=== PATIENT | female | born 1995 | race Caucasian/White ===

== ENCOUNTER → 2019-12-10 14:20 | Outpatient (BNVA) | payer MEDICAID, SELFPAY | PROVIDERS: Visit Provider Nurse Practitioner Women's Health | DX: Z34.90 Encounter for supervision of normal pregnancy, unspecified, unspecified trimester (principal) | CPT/HCPCS: 81000 ==

== ENCOUNTER → 2019-12-18 14:16 | Outpatient (BNVA) | payer MEDICAID, SELFPAY | PROVIDERS: Visit Provider Obstetrics & Gynecology | DX: Z34.90 Encounter for supervision of normal pregnancy, unspecified, unspecified trimester (principal) | CPT/HCPCS: 80053; 80307; 81000; 85027; 86592; 86762; 86803; 86850; 86900; 87340 ==

== ENCOUNTER → 2020-01-06 12:02 | Outpatient (BNVA) | payer MEDICAID, SELFPAY | PROVIDERS: Visit Provider Obstetrics & Gynecology | DX: Z34.90 Encounter for supervision of normal pregnancy, unspecified, unspecified trimester (principal) | CPT/HCPCS: 81000 ==

== ENCOUNTER → 2020-01-28 11:13 | Outpatient (BNVA) | payer MEDICAID, SELFPAY | PROVIDERS: Visit Provider Nurse Practitioner Women's Health | DX: Z34.90 Encounter for supervision of normal pregnancy, unspecified, unspecified trimester (principal) | CPT/HCPCS: 81000 ==

== ENCOUNTER → 2020-03-15 07:58 | Outpatient (BNVA) | payer OTHER, MEDICAID, SELFPAY | PROVIDERS: Visit Provider Obstetrics & Gynecology | DX: Z34.90 Encounter for supervision of normal pregnancy, unspecified, unspecified trimester (principal) | CPT/HCPCS: 81000 ==

== ENCOUNTER → 2020-04-28 10:52 | Outpatient (BNVA) | payer OTHER, MEDICAID, SELFPAY | PROVIDERS: Visit Provider Obstetrics & Gynecology | DX: Z34.90 Encounter for supervision of normal pregnancy, unspecified, unspecified trimester (principal) | CPT/HCPCS: 82950; 84315; 85025 ==

== ENCOUNTER → 2020-06-23 09:38 | Outpatient (BNVA) | payer OTHER, MEDICAID, SELFPAY | PROVIDERS: Visit Provider Obstetrics & Gynecology | DX: Z34.80 Encounter for supervision of other normal pregnancy, unspecified trimester (principal) | CPT/HCPCS: 84315; 87081 ==

== ENCOUNTER 2020-07-13 11:00 | Inpatient (IN) | payer OTHER, MEDICAID, SELFPAY ==
[2020-07-13] VITALS (56 sets, daily range): BP systolic 88–151; BP diastolic 48–86; PULSE 63–166; RESP 18; TEMP 36–36.7; O2SAT 92–100; BMI 29.4
[2020-07-13] MEDS: dextrose 5%-lactated ringers 1,000 ML 999 ML IV ×2 (10:29→12:04)
[2020-07-13] MEDS: ampicillin 2,000 MG in sodium chloride 0.9% (plus) 50 ML 100 MG IV (10:29)
[2020-07-13 11:39] LABS: Basophils % 0.3 %; Eosinophils % 0.1 %; Hematocrit 36.7 % (37.0-47.0); Hemoglobin 11.7 g/dL (11.5-15.3); Lymphocytes # 1.7 10^3/uL (0.8-4.8); Lymphocytes % 14.3 %; Mean Corpuscular HGB Conc 31.9 g/dL (30.0-36.0); Mean Corpuscular Hemoglobin 27.1 pg (28.0-34.0); Mean Platelet Volume 10.9 fL (7.4-10.4); Monocytes # 0.7 10^3/uL (0.2-0.9); Monocytes % 5.4 %; Neutrophils # 9.39 10^3/uL (1.8-7.7); Neutrophils % 78.7 %; Nucleated Red Blood Cells % 0 %; Platelet Count 167 10^3/cmm (130-400); Red Blood Count 4.32 10^6/uL (4.1-5.3); Red Cell Distribution Width 13.4 % (12.1-15.1); White Blood Count 11.9 10^3/uL (4.0-10.0)
--- NOTE | 2020-07-13 12:36 | P.HP_ITS ---
Providers/Chief Complaint Admitting Physician: Sapna Rich MD Chief Complaint: Contractions History of Present Illness Shaye Kiran is a 24 year old female at 39 0/7 weeks gestation who presents for active labor. Her is complicated by GBS positive and request for sterilization. She will have her covid test today. She presented to labor and delivery. She is luli every 2-3 minutes and she is making cervical change. Review of Systems General: Reports: 10 or more systems reviewed and unremarkable except in HPI and below Medications/Allergies Home Medications Medication Instructions Recorded Confirmed Last Taken Type prenat.vits,wojciech,isp-ieti-rlzvk 1 tab PO DAILY 12/10/19 07/07/20 Unknown History Allergies Allergy/AdvReac Type Severity Reaction Status Date / Time No Known Allergies Allergy Verified 07/07/20 10: PFSH Acute PFSH: Medical History No pertinent past medical history Denies diabetes, asthma, hypertension, seizures, DVT/PE PMD: None Surgical History Hx of wisdom tooth extraction Family History Grandmother Diabetes Paternal Heart disease Paternal Hypercholesteremia Paternal Thyroid disease Maternal Denies family history of Colon cancer Ovarian cancer Breast cancer Bleeding disorder Hypertension Uterine cancer Stroke Female Reproductive History: : 3 Vitals/I&O/Wt Last Vital Signs Temp 97.2 F L 07/13/20 11:52 Pulse 77 07/13/20 12:33 Resp 18 07/13/20 08:44 BP 130/70 07/13/20 12:33 07/12/20 07/13/20 07/13/20 22:59 06:59 14:59 Intake Total 1000 / 1000 Balance 1000 / 1000 Weight last 48 hrs Weight 177 lb Physical Exam Const: COMMON NORMALS: no acute distress, average body habitus, patient oriented x3, no limitations, healthy appearing and alert GENERAL APPEARANCE: cooperative, comfortable, well kempt and well developed ORIENTATION/CONSCIOUSNESS: Yes awake, Yes oriented to person, Yes oriented to place and Yes oriented to time Neck/C-Spine: COMMON NORMALS: full ROM and supple Resp: COMMON NORMALS: normal respiratory effort EFFORT & INSPECTION: Yes able to speak in complete sentences GI: COMMON NORMALS: Soft to palpation and non-tender : MANUAL OB EXAM: dilated 3 cm, effaced 75% and station -1 Extremity: COMMON NORMALS: no clubbing, cyanosis or edema Psych: COMMON NORMALS: mental status grossly normal, Normal thought process present, cooperative, normal affect and speech normal APPEARANCE: Yes grossly normal and Yes well kempt ATTITUDE: Yes calm and Yes engaged ACTIVITY/MOTOR BEHAVIOR: Yes appropriate eye contact Data : 07/13/20 11:07 A&P Assessment and plan (1) GBS (group B Streptococcus carrier), +RV culture, currently : plan GBS prophylaxis Status: Acute (2) Request for sterilization: plan post tubal ligation covid testing today Status: Acute (3) Supervision of other normal : admit for expectant management anticipate Status: Acute Attestations Medical Necessity Statement*: She is admitted for active labor. Coding Level of Care Code Acute Financial Reporting Specialist for [facility] Fwd Diagnoses GBS (group B Streptococcus carrier), +RV culture, currently O99.820 Request for sterilization Z30.2 Supervision of other normal Z34.80
[2020-07-13] MEDS: lactated ringers 1,000 ML 999 ML IV (12:50)
[2020-07-13] MEDS: ampicillin 1,000 MG in sodium chloride 0.9% (plus) 50 ML 100 MG IV ×2 (13:52→17:54)
[2020-07-13] MEDS: dextrose 5%-lactated ringers 1,000 ML 125 ML IV (13:56)
--- NOTE | 2020-07-13 14:14 | P.ANES_ITS ---
Anesthesia Procedures Procedure/Date: 07/13/20 Epidural: Time Out Performed: Yes Consents Signed: Procedure Consent Consent: from patient, risks and benefits reviewed and patient agrees to proceed Lumbar Level: L3-L4 Epidural position: sitting Epidural procedure: sterile prep of area, 1% lidocaine to numb the area, 18 g needle, neg for parest hesia, test dose given, 1.5% xylocaine 1:200k epi, placed PCEA, no systemic response, sterile dressing applied, L.U.D. no apparent complications and 0.2% Ropiavacaine @ mls/hr (13) Additional Comments: PIO at 4cm cath at 9cm. Bolused 5mls 2% PF lido.
--- NOTE | 2020-07-13 14:14 | P.ANESASSM_ITS ---
Pre-Anesthetic Assessment Pre-Anesthetic Assessment: Height/Weight: Height 1.65 m Weight 80.286 kg Temp Pulse Resp BP Pulse Ox 97.2 F L 95 18 119/60 99 07/13/20 11:52 07/13/20 14:10 07/13/20 08:44 07/13/20 14:10 07/13/20 14:07 Was Beta Juancarlos taken within 24 hours: N/A Was Clonidine taken within 24 hours: N/A Social: Social History: No alcohol and No tobacco Exam: Pre-Anes Outpt Exam: alert, oriented x 3, clear to auscultation bilaterally and regular rate & rhythm Airway: Submandibular: WNL Cervical ROM: WNL MP: 2 Dentition: Full History/ROS: No significant history except as noted Anesthetic Plan: ASA status: 2 Anesthesia: Regional (specify below) (Labor epidural) Risk of > 500 ml blood loss (7ml/kg in children): No Meds/Allergies Current Medications: Current Medications Generic Name Dose Route Start Last Admin Trade Name Freq PRN Reason Stop Dose Admin Ampicillin Sodium 1,000 mg/ 50 mls @ 100 mls/ hr 07/13/20 14:00 07/13/20 13:52 Sodium Chloride IV 100 mls/hr Q4H AHMET Administration Protocol Dextrose/Lactated Ringer's 1,000 mls @ 125 m ls/hr 07/13/20 11:00 07/13/20 13:56 Dextrose 5%-Lact ated Ringers IV 125 mls/hr .Q8H AHMET Administration Ropivacaine 200 mg in 100 mls @ 13 mls/hr 07/13/20 12:45 07/13/20 13:58 Naropin Premix EPIDURAL 13 mls/hr .Q7H42M AHMET Administration Lactated Ringer's 1,000 mls @ 999 m ls/hr 07/13/20 12:37 07/13/20 13:59 Lactated Ringers IV Infused .Q1H1M PRN Infusion See label comment s PFSH Anesthesia PFSH: Medical History No pertinent past medical history Denies diabetes, asthma, hypertension, seizures, DVT/PE PMD: None Surgical History Hx of wisdom tooth extraction Family History Grandmother Diabetes Paternal Heart disease Paternal Hypercholesteremia Paternal Thyroid disease Maternal Denies family history of Colon cancer Ovarian cancer Breast cancer Bleeding disorder Hypertension Uterine cancer Stroke Female Reproductive History: : 3 Data Anesthesia CBC & Chem 7: 07/13/20 11:07 Other Labs: Laboratory Results - last 48 hr 07/13/20 11:07 WBC 11.9 H RBC 4.32 Hgb 11.7 Hct 36.7 L MCV 85.0 MCH 27.1 L MCHC 31.9 RDW 13.4 Plt Count 167 MPV 10.9 H Neut % (Auto) 78.7 Lymph % (Auto) 14.3 [place] % (Auto) 5.4 Eos % (Auto) 0.1 Baso % (Auto) 0.3 Neut # (Auto) 9.39 H Lymph # (Auto) 1.7 [place] # (Auto) 0.7 Eos # (Auto) 0.0 Baso # (Auto) 0.0 Nucleated RBC % (auto) 0 Nucleated RBCs # 0.0 Cardiac Studies: No Data to Display
[2020-07-13] MEDS: oxytocin 30 UNIT/500 ML BAG 600 UNIT IV (21:45)
--- NOTE | 2020-07-13 22:18 | P.PCNOB_ITS ---
Delivery Note: Date of delivery: July 13, 2020 Pre-delivery diagnoses: IUP at 39 0/7 weeks Post-delivery diagnoses: same, delivered Procedure: Op report anesthesia: Epidural Delivering Physician: jefry Estimated blood loss (mL): 50 Findings: term male in the [place] presentation Pre-Delivery Course: The patient was admitted in active labor. She became uncomfortable at 4 cm and received an epidural. Delivery: The patient had complete cervical dilation and began to push. The head delivered in the [ ] position over an intact perineum under epidural anesthesia. The nose and mouth were bulb suctioned. The shoulders and body delivered atraumatically. The baby was placed onto the mother's abdomen. The cord was clamped and cut. Cord blood was obtained. The placenta delivered spontaneously. It was inspected and found to be intact. Inspection of the perineum revealed no laceration. Estimated blood loss 50 mL. Apgars on baby were 9 at 1 minute and 9 at 5 minutes. Weight of baby is 8 pounds 7 ounces. Mother and baby were stable post delivery. Post-Delivery Status: stable mother and A&P Assessment and plan (1) GBS (group B Streptococcus carrier), +RV culture, currently : Status: Acute (2) Request for sterilization: Status: Acute (3) Supervision of other normal : Status: Acute Coding Level of Care Code Acute Donor Specialist for [facility] Fwd Diagnoses GBS (group B Streptococcus carrier), +RV culture, currently O99.820 Request for sterilization Z30.2 Supervision of other normal Z34.80
[2020-07-14] VITALS (10 sets, daily range): BP systolic 105–120; BP diastolic 59–80; PULSE 67–107; RESP 14–18; TEMP 36.4–37.5; O2SAT 95–99
[2020-07-14] MEDS: acetaminophen 325 mg Tablet 650 MG PO (04:44)
--- NOTE | 2020-07-14 07:27 | P.ANESASSM_ITS ---
Pre-Anesthetic Assessment Pre-Anesthetic Assessment: Height/Weight: Height 1.65 m Weight 80.286 kg Temp Pulse Resp BP Pulse Ox 98.1 F 82 18 115/70 95 07/14/20 07:11 07/14/20 07:11 07/14/20 07:11 07/14/20 07:11 07/14/20 07:11 Preop Diagnosis: desires sterilization Proposed Procedure: Operation Date: 07/14/20 08:25 Proposed Procedures p Bilateral Tubal Ligation(Bilateral) - Sapna Rich MD Was Beta Juancarlos taken within 24 hours: N/A Was Clonidine taken within 24 hours: N/A Social: Social History: No alcohol and No tobacco Exam: Pre-Anes Outpt Exam: alert, oriented x 3, clear to auscultation bilat erally and regular rate & rhythm Airway: Submandibular: WNL Cervical ROM: WNL MP: 2 Dentition: Full History/ROS: No significant history except as noted Anesthetic Plan: ASA status: 2 Anesthesia: General Other: One day Risk of > 500 ml blood loss (7ml/kg in children): No Meds/Allergies Current Medications: Current Medications Generic Name Dose Route Start Last Admin Trade Name Freq PRN Reason Stop Dose Admin Acetaminophen 650 mg 07/13/20 10:57 07/14/20 04:44 Acetaminophen 32 5 Mg Tablet PO 650 mg Q6H PRN Administration Mild pain or temp > 100.4 Oxytocin 30 unit in 500 ml s @ 600 mls/hr 07/13/20 10:57 07/13/20 22:55 Pitocin IV Infused .Q50M PRN Titration After delivery of Protocol PFSH Anesthesia PFSH: Medical History No pertinent past medical history Denies diabetes, asthma, hypertension, seizures, DVT/PE PMD: None Surgical History Hx of wisdom tooth extraction Family History Grandmother Diabetes Paternal Heart disease Paternal Hypercholesteremia Paternal Thyroid disease Maternal Denies family history of Colon cancer Ovarian cancer Breast cancer Bleeding disorder Hypertension Uterine cancer Stroke Female Reproductive History: : 3 Data Anesthesia CBC & Chem 7: 07/13/20 11:07 Other Labs: Laboratory Results - last 48 hr 07/13/20 11:07 WBC 11.9 H RBC 4.32 Hgb 11.7 Hct 36.7 L MCV 85.0 MCH 27.1 L MCHC 31.9 RDW 13.4 Plt Count 167 MPV 10.9 H Neut % (Auto) 78.7 Lymph % (Auto) 14.3 [place] % (Auto) 5.4 Eos % (Auto) 0.1 Baso % (Auto) 0.3 Neut # (Auto) 9.39 H Lymph # (Auto) 1.7 [place] # (Auto) 0.7 Eos # (Auto) 0.0 Baso # (Auto) 0.0 Nucleated RBC % (auto) 0 Nucleated RBCs # 0.0 Cardiac Studies: No Data to Display
--- NOTE | 2020-07-14 09:03 | PM.PN ---
Subjective Subjective: Interval history: The patient is doing well today. She was unable to have her tubal ligation done this AM due to no covid results back yet. She is tolerating a regular diet, ambulating and pain is well controlled. Plan is for discharge tomorrow morning and interval tubal ligation. Medications: Reviewed: Yes Vitals/I&O/Wt Last Vital Signs Temp 98.3 F 07/14/20 08:40 Pulse 74 07/14/20 08:40 Resp 15 07/14/20 08:40 BP 120/80 07/14/20 08:40 Pulse Ox 99 07/14/20 08:40 07/13/20 07/14/20 07/14/20 22:59 06:59 14:59 Intake Total 1663 / 4713 Output Total 1050 / 1050 Balance 1663 / 4713 -1050 / 3663 Weight last 48 hrs Weight 177 lb Physical Exam Const: COMMON NORMALS: no acute distress, average body habitus, patient oriented x3, no limitations, healthy appearing and alert GENERAL APPEARANCE: cooperative, comfortable, well kempt and well developed ORIENTATION/CONSCIOUSNESS: Yes awake, Yes oriented to person, Yes oriented to place and Yes oriented to time Neck/C-Spine: COMMON NORMALS: full ROM and supple Resp: COMMON NORMALS: normal respiratory effort EFFORT & INSPECTION: Yes able to speak in complete sentences GI: COMMON NORMALS: Soft to palpation and non-tender PALPATION: Yes Soft to palpation Extremity: COMMON NORMALS: no clubbing, cyanosis or edema Neuro: COMMON NORMALS: patient oriented x3 SENSORIUM/ORIENTATION: Yes alert, Yes oriented to person, Yes oriented to place and Yes oriented to time Psych: COMMON NORMALS: mental status grossly normal, Normal thought process present, cooperative, normal affect and speech normal APPEARANCE: Yes grossly normal and Yes well kempt ATTITUDE: Yes calm and Yes engaged ACTIVITY/MOTOR BEHAVIOR: Yes appropriate eye contact SPEECH: Yes normal speech THOUGHT PROCESS: Normal thought process present Urinary Catheter Management^: Coreas: Cath Placed During This Visit: yes, but has since been removed by the nurse Reason for Continuing Indwelling Catheter: Decision to DC Catheter Urinary Catheter Date of Insertion: 07/13/20 Urinary Catheter Time of Insertion: 14:10 Date Urinary Catheter Removed: 07/13/20 Time Urinary Catheter Discontinued: 21:34 Data : 07/13/20 11:07 A&P Assessment and plan (1) GBS (group B Streptococcus carrier), +RV culture, currently : plan for baby to stay for 48 hours Status: Acute (2) Supervision of other normal : doing well. plan for discharge tomorrow Status: Acute (3) Request for sterilization: plan for interval tubal ligation Status: Acute Attestations Medical Necessity Statement*: the patient is post . She will stay two midnights Coding Level of Care Code Acute Manager Rn for [facility] Fwd Diagnoses GBS (group B Streptococcus carrier), +RV culture, currently O99.820 Supervision of other normal Z34.80 Request for sterilization Z30.2
[2020-07-14] MEDS: lanolin oint 7 gm 1 APPLIC TOPICAL (09:56)
[2020-07-14] MEDS: benzocaine-menthol 78 gm Canister 1 SPRAY TOPICAL (09:56)
[2020-07-14] MEDS: prenatal vitamin Capsule 1 CAP PO (09:57)
[2020-07-14] MEDS: docusate sodium 100 mg Capsule PO (09:57)
[2020-07-14] MEDS: ibuprofen 800 mg tablet PO ×3 (09:57→20:54)
[2020-07-14 10:17] LABS: Hematocrit 30.5 % (37.0-47.0); Hemoglobin 9.7 g/dL (11.5-15.3); Mean Corpuscular HGB Conc 31.8 g/dL (30.0-36.0); Mean Corpuscular Hemoglobin 26.9 pg (28.0-34.0); Mean Corpuscular Volume 84.5 fL (81-99); Mean Platelet Volume 10.1 fL (7.4-10.4); Platelet Count 181 10^3/cmm (130-400); Red Blood Count 3.61 10^6/uL (4.1-5.3); Red Cell Distribution Width 13.4 % (12.1-15.1); White Blood Count 15.8 10^3/uL (4.0-10.0)
[2020-07-14 14:39] LABS: Coronavirus Test Green County Not Detected
[2020-07-15 03:40] VITALS: BP 114/71; PULSE 66; RESP 16; TEMP 36.7
[2020-07-15] MEDS: docusate sodium 100 mg Capsule PO (08:59)
[2020-07-15] MEDS: prenatal vitamin Capsule 1 CAP PO (08:59)
[2020-07-15] MEDS: ibuprofen 800 mg tablet PO (08:59)
--- NOTE | 2020-07-15 09:38 | P.DS_ITS ---
Discharge Providers Date of Admission: 07/13/20 11:00 Date of Discharge: July 15, 2020 Attending Provider at Admission: Sapna Rich MD Attending Provider at Discharge: Sapna Rich MD Diagnoses at Discharge Discharge Diagnosis (1) GBS (group B Streptococcus carrier), +RV culture, currently : Status: Acute (2) Supervision of other normal : Status: Acute (3) Request for sterilization: Status: Acute Reason for Visit Reason for Visit: Contractions Hospital Course Hospital Course The patient was admitted in active labor.. she had spontaneous delivery of a term male . She did well and was ready for discharge on day #2. She desired a tubal ligation, however, she did not have a covid test back and the procedure was cancelled. Physical Exam Const: COMMON NORMALS: no acute distress, average body habitus, patient oriented x3, no limitations, healthy appearing, alert and well nourished GENERAL APPEARANCE: cooperative, comfortable, well kempt and well developed ORIENTATION/CONSCIOUSNESS: Yes awake, Yes oriented to person, Yes oriented to place and Yes oriented to time Neck/C-Spine: COMMON NORMALS: full ROM and supple Resp: COMMON NORMALS: normal respiratory effort EFFORT & INSPECTION: Yes able to speak in complete sentences GI: COMMON NORMALS: Soft to palpation and non-tender PALPATION: Yes Soft to palpation Extremity: COMMON NORMALS: no clubbing, cyanosis or edema Neuro: COMMON NORMALS: patient oriented x3 SENSORIUM/ORIENTATION: Yes alert, Yes oriented to person, Yes oriented to place and Yes oriented to time Psych: APPEARANCE: Yes well kempt Urinary Catheter Management^: Ocreas: Cath Placed During This Visit: yes, but has since been removed by the nurse Reason for Continuing Indwelling Catheter: Decision to DC Catheter Urinary Catheter Date of Insertion: 07/13/20 Urinary Catheter Time of Insertion: 14:10 Date Urinary Catheter Removed: 07/13/20 Time Urinary Catheter Discontinued: 21:34 Discharge Data Data Completed and Pending: Labs from last 24 hours 07/14/20 07/13/20 10:04 11:00 WBC 15.8 H RBC 3.61 L Hgb 9.7 L Hct 30.5 L MCV 84.5 MCH 26.9 L MCHC 31.8 RDW 13.4 Plt Count 181 MPV 10.1 Nasal/Oral COVID-1 9 PCR Not detected Vitals: Last Vital Signs Temp 98.1 F 07/15/20 03:40 Pulse 66 07/15/20 03:40 Resp 16 07/15/20 03:40 BP 114/71 07/15/20 03:40 Pulse Ox 98 07/14/20 15:55 Discharge Plan Discharge Patient Disposition: Home Condition: Stable Prescriptions: Continued prenat.vits,wojciech,rdt-yefd-eqkqm Tablet 1 tab PO DAILY RF: 0 Discharge Orders: Discharge Order (Routine); Ordered 07/15/20 Ordered By: Sapna Rich Referrals: Cassia Ann MD [Physician] - 08/17/20 8:30 am (Your 6 week post- appointment is scheduled for 08/17/2020 at 8:30am) Patient Instructions: Vitamins (By mouth), Pre-eclampsia and Eclampsia (DC), Bleeding (DC), OB Discharge Report, OB Food/Drug Interaction Guide, Opioid Safety, OB Proud Parent Packet, OB Vaginal Deliveries, OB Vaginal Deliveries - [facility] Discharge Attestations Time Spent in Discharge Care*: less than 30 min Quality Metrics Clinical Quality Measures During this hospital stay, did patient experience: None Coding Level of Care Code Acute [facility] DC note Diagnoses GBS (group B Streptococcus carrier), +RV culture, currently O99.820 Supervision of other normal Z34.80 Request for sterilization Z30.2
[2020-07-15 10:20] VITALS: BP 133/79; PULSE 76; RESP 17; TEMP 36.4
[2020-07-15 11:01] VITALS: BP 133/79; PULSE 76; RESP 17; TEMP 36.4
== END 2020-07-15 10:47 | disposition home or self-care (01) | DRG 807 ==
LOC: OPOB 11:04 → OBGYN 11:04
PROVIDERS: Admitting Provider Obstetrics & Gynecology; Visit Provider Obstetrics & Gynecology
PROC: (CPT 58605; principal; 2020-07-14 08:05)
DX: O99.824 Streptococcus B carrier state complicating childbirth (principal); Z37.0 Single live birth; Z3A.39 39 weeks gestation of pregnancy
CPT/HCPCS: 36415; 51702; 59025; 59409; 85025; 85027; 87635; 99211; J0290; J2795

== ENCOUNTER → 2020-08-13 09:18 | Outpatient (BNVA) | payer OTHER, MEDICAID, SELFPAY | PROVIDERS: Visit Provider Obstetrics & Gynecology | DX: Z30.2 Encounter for sterilization (principal); Z20.822 Contact with and (suspected) exposure to COVID-19 | CPT/HCPCS: 87635 ==

== ENCOUNTER → 2020-08-17 08:50 | Outpatient (BNVA) | payer OTHER, MEDICAID, SELFPAY | PROVIDERS: Visit Provider Obstetrics & Gynecology | DX: Z12.4 Encounter for screening for malignant neoplasm of cervix (principal) | CPT/HCPCS: 88175 ==

== ENCOUNTER 2020-08-19 08:39 | Day surgery (SDC) | payer OTHER, MEDICAID, SELFPAY ==
[2020-08-18 12:14] VITALS: BMI 25.9
[2020-08-19] VITALS (7 sets, daily range): BP systolic 105–141; BP diastolic 73–87; PULSE 69–90; RESP 14–18; TEMP 36.1–36.7; O2SAT 96–99
[2020-08-19 09:02] LABS: OR HCG Qualitative Urine Negative (Negative)
--- NOTE | 2020-08-19 09:15 | P.ANESASSM_ITS ---
Pre-Anesthetic Assessment Pre-Anesthetic Assessment: Height/Weight: Height 1.65 m Weight 70.76 kg Preop Diagnosis: Multiparity desiring sterilization Proposed Procedure: Operation Date: 08/19/20 10:15 Proposed Procedures p Laparoscopic bilateral Salpingectomy 75048 z30.2(Bilateral) - Cassia Rizzo MD Was Beta Juancarlos taken within 24 hours: N/A Was Clonidine taken within 24 hours: N/A Last intake: Intake Last Liquid Date 08/18/20 Last Liquid Time 19:00 Last Solid Date 08/18/20 Last Solid Time 19:00 Social: Social History: No alcohol and No tobacco Exam: Pre-Anes Outpt Exam: alert, oriented x 3, clear to auscultation bilaterally and regular rate & rhythm Airway: Submandibular: WNL Cervical ROM: WNL MP: 2 History/ROS: No significant complaints Pulmonary: Pulmonary: None reported CV/HEM: CV/HEM: None reported : : None reported Hepatic: Hepatic: None reported GI: GI: None reported Metabolic: Metabolic: None reported Musc/skel: Musc/skel: None reported Neuropsych: Neuropsych: None reported Anesthetic Plan: ASA status: 1 Anesthesia: General PFSH Anesthesia PFSH: Medical History No pertinent past medical history Denies diabetes, asthma, hypertension, seizures, DVT/PE PMD: None Surgical History Hx of wisdom tooth extraction Family History Grandmother Diabetes Paternal Heart disease Paternal Hypercholesteremia Paternal Thyroid disease Maternal Denies family history of Colon cancer Ovarian cancer Breast cancer Bleeding disorder Hypertension Uterine cancer Stroke Female Reproductive History: Date of last menstrual period: 10/13/20 Data Anesthesia Other Labs: Laboratory Results - last 48 hr 08/19/20 09:00 Urine HCG, Qual Negative Cardiac Studies: No Data to Display
[2020-08-19] MEDS: sodium chloride 0.9% 1,000 ML 30 ML IV (09:30)
--- NOTE | 2020-08-19 09:38 | P.HPUD_ITS ---
Surgery/Procedure H&P Update DATE OF PROCEDURE: August 19, 2020 DATE H&P PERFORMED: 08/17/20 H&P UPDATE INFORMATION: I have reviewed H&P completed within last 30 days, I have examined patient prior to procedure, No changes to prior documentation and H&P is in [facility] EMR on date indicated PREOP DIAGNOSIS: Multiparity desiring sterilization PLANNED PROCEDURE: Operation Date: 08/19/20 10:15 Proposed Procedures p Laparoscopic bilateral Salpingectomy 89861 z30.2(Bilateral) - Cassia Rizzo MD
[2020-08-19] MEDS: silver nitrate applicator 1 EACH TOPICAL (13:16)
--- NOTE | 2020-08-19 13:25 | P.OP_ITS ---
Operative Report Date of procedure: August 19, 2020 OPERATIVE REPORT Date of surgery: 08/19/2020 Date of dictation: 08/19/2020 Preoperative diagnosis: Multiparity desiring permanent sterilization Postoperative diagnosis/findings: 8-week size anteverted uterus, no adnexal masses, grade 1 cystocele and uterine prolapse, minimal rectocele. On laparoscopy no adhesions intra-abdominally. Normal tubes and ovaries bilaterally. Procedure done: Laparoscopic bilateral total salpingectomy for sterilization. Specimens removed/disposition of specimens: Right and left fallopian tube sent to pathology Surgeon: Dr. Cassia Dan Continuous Dryout Operator: Ember Hobson Anesthesia: General endotracheal tube anesthesia Estimated blood loss: 25 ml Intravenous fluids: 1 L of LR Urine output: 800 mL of clear urine at the end of procedure Medications: As per anesthesia records Complications: None, patient was extubated and taken to recovery room in stable condition. PROCEDURE: After consents were signed patient was taken to the operating room where she was placed under general anesthesia without any difficulty. She was placed supine on the table in the lithotomy position. Exam under anesthesia revealed findings noted above. She was then prepped and draped in usual sterile fashion. Weighted speculum and anterior wall retractors were placed in the vagina, cervix visualized and grasped with a tenaculum. ZUMI uterine manipulator was placed into the uterus without any difficulty. Catheter was placed, instruments were removed from the vagina and the legs were lowered. Attention was turned towards the abdomen where local anesthetic was injected in to her umbilicus. A 10 mm skin incision was made and a 10 mm port was placed through the umbilicus using an open technique--- fascia was identified and tented up with [place] clamps and directly incised using curved [place]. Peritoneum was then bluntly entered digitally and palpation revealed no adhesions around site of entry. [place] trocar was then attached to the fascia and inflated. Once intra-abdominal entry was confirmed gas was turned on and intra-abdominal opening pressure was 2. The abdomen is insufflated to the pressure was 14. Survey of the abdomen revealed findings noted above small. Two 5 mm trocar was placed into the left and right lower quadrant under direct visualization after injecting local anesthetic. The Glintsyant device was used to clamp, cauterize and then cut the mesosalpinx under the fallopian tube starting at the fimbriated end and moving towards the uterus. This was done in a sequential fashion in such a way that the entire fallopian tube was from the sidewall and the uterus. The small cornual stump was cauterized as well. This was done first on the right side and then the left side without any difficulty. The right and left fallopian tubes were taken out of the umbilical port without any difficulty. No bleeding was noted at sites of surgery. Trochars were removed under direct visualization. Small subperitoneal hematoma was noted in the right lower quadrant port but it was stable with 0 pressure. All instruments removed from the abdomen and the abdomen was desufflated. The fascia on the umbilical port was closed with 0 Vicryl in a continuous fashion and good reapproximation was obtained-care was taken to tent up the fascia throughout the closure. The skin incisions was closed with 4-0 Monocryl in a subcuticular fashion good reapproximation and hemostasis was noted. The incisions were dressed with Steri-Strips Telfa and Tegaderm. The ZUMI and Coreas catheter were removed and good hemostasis with silver nitrate was noted. The patient was extubated without any difficulty and taken to the recovery room in a stable condition. FOLLOW UP: Follow-up in 2 weeks and 6 weeks with surgeon MEDICATION ON DISCHARGE: Colace 100 mg by mouth every 12 hours when necessary constipation, 30 tablets, no refill1 ohs Ibuprofen 800 mg by mouth every 8 hours when necessary pain, 60 tablets, no refills. [place] 5/325 mg 1 tablet by mouth every 6 hours when necessary pain,25 tablets, no refills Continue other home medication DISPOSITION: Home in a stable condition This documentation was created by [employer] religion teacher software (known for inherent religion teacher error). Every effort was made to assure accuracy of religion teacher. Any obvious errors or omissions should be clarified with the author of the document. Pre-op Diagnosis: Multiparity desiring sterilization
[2020-08-19] MEDS: ondansetron 2 mg/ML SDV 2 mL 4 MG IVP (14:38)
--- NOTE | 2020-08-19 15:10 | ANE.PACU2 ---
Inpatient post-anesthesia follow up: Airway intact: Yes Vital signs: Temperature 98.1 F Pulse Rate 74 Respiratory Rate 16 Blood Pressure 136/76 Pulse Oximetry 98 Oxygen Delivery Me thod Room Air Oxygen Flow Rate Fraction of Inspir ed Oxygen Hydration adequate: Yes Nausea and vomiting: No Pain level: 4 Mental status: Baseline
[2020-08-19] MEDS: diphenhydrAMINE 50 mg/mL SDV 1mL 12.5 MG IVP (15:20)
[2020-08-19] MEDS: morphine 4 mg/mL SDV 1 mL IVP (15:25)
== END 2020-08-19 15:50 | disposition home or self-care (01) ==
PROVIDERS: Anesthesiology; Visit Provider Obstetrics & Gynecology
PROC: (CPT 58661; principal; 2020-08-19 10:15)
DX: Z30.2 Encounter for sterilization (principal); Z83.3 Family history of diabetes mellitus; Z82.49 Family history of ischemic heart disease and other diseases of the circulatory system
CPT/HCPCS: 58661; 81025; 84703; 86850; 86900; 88302; 96374; J1100; J1170; J1200; J2270; J2405; J2704; J3010; J3490; J7030